=== PATIENT | female | born 1930 | race African-American/Black ===

== ENCOUNTER 2017-12-11 10:29 | Inpatient (IN) | payer MEDICARE ==
[~2017-12-11] VITALS: Ht 172.7 cm; Wt 82.1 kg
[2017-12-11 11:55] LABS: BASOPHILS % 0.6 % (0.0-2.0); EOSINOPHILS % 1.1 % (0.0-5.0); HEMATOCRIT. 33.6 % (36.0-48.0); HEMOGLOBIN. 11.2 g/dL (12.0-16.0); LYMPHOCYTES % 14.4 % (20.0-50.0); MEAN CORPUSCULAR HEMOGLOBIN 30.2 pg (28.0-32.0); MEAN CORPUSCULAR VOLUME 90.7 fL (81.0-99.0); MEAN PLATELET VOLUME 8.8 fl (7.4-10.4); NEUTROPHILS % 74.9 % (40.0-76.0); PLATELET 278 x1000/uL (130-400); RED CELL DISTRIBUTION WIDTH 15.3 % (11.6-14.6)
[2017-12-11 11:57] LABS: CHLORIDE 107 mEq/L (98-107)
[2017-12-11 12:04] LABS: BETA HYDROXYBUTYRATE 0.4 mMol/L (0.0-0.3); D-DIMER 2.32 mg/L FEU (<0.50)
[2017-12-11] MEDS ORDERED: SODIUM CHLORIDE 0.9% 1,000 ML IV ONE (13:15)
[2017-12-11] MEDS ORDERED: ASPIRIN 325MG EC TABLET PO ONE (14:00)
[2017-12-11] MEDS ORDERED: IOHEXOL-350 100 ML BOTTLE ONE (14:18)
[2017-12-11 15:46] LABS: CLARITY URINE CLEAR (CLEAR); COLOR URINE YELLOW (YELLOW); KETONES URINE NEGATIVE (NEGATIVE); LEUKOCYTE ESTERASE URINE 2+ (NEGATIVE); NITRITE URINE NEGATIVE (NEGATIVE); OCCULT BLOOD URINE NEGATIVE (NEGATIVE); PROTEIN URINE TRACE (NEGATIVE); SPECIFIC GRAVITY URINE 1.015 (1.005-1.030); UROBILINOGEN URINE 0.2 E.U./dL (0.2-1.0)
[2017-12-11 16:00] VITALS: BP 117/64
[2017-12-11] MEDS ORDERED: DEXTROSE 50% WATER 50ML SYRINGE IV PRN (16:15)
[2017-12-11] MEDS ORDERED: CLOP75TA16 MT (16:27)
[2017-12-11] MEDS ORDERED: CARB200T MT (16:27)
[2017-12-11] MEDS ORDERED: HYDR100T31 MT (16:27)
[2017-12-11] MEDS ORDERED: AMLO1CAP2 MT (16:27)
[2017-12-11] MEDS ORDERED: LIP40 MT (16:27)
[2017-12-11] MEDS: BLOOD SUGAR DIAGNOSTIC STRIP TEST SCH ×2 (17:10→21:17)
[2017-12-11 18:27] LABS: VITAMIN B12 SERUM 1344 pg/mL (211-911)
[2017-12-11] MEDS: INSULIN LISPRO 100 UNITS/ML SUBCUT SCH ×2 (18:29→22:41)
[2017-12-11 20:00] VITALS: BP 146/56
[2017-12-11] MEDS ORDERED: HYDRALAZINE HCL 100MG TABLET PO SCH (21:00)
[2017-12-11] MEDS: CARBAMAZEPINE 200MG TABLET PO SCH (22:34)
[2017-12-11] MEDS: HYDRALAZINE HCL 50MG TABLET PO SCH (22:40)
[2017-12-12] VITALS: BP 119/61
[2017-12-12 04:00] VITALS: BP 126/56
[2017-12-12] MEDS: BLOOD SUGAR DIAGNOSTIC STRIP TEST SCH ×3 (05:54→16:53)
[2017-12-12] MEDS: INSULIN LISPRO 100 UNITS/ML SUBCUT SCH ×3 (05:54→16:54)
[2017-12-12 07:30] VITALS: BP 123/55
[2017-12-12 07:45] LABS: CHLORIDE 108 mEq/L (98-107)
[2017-12-12 08:01] LABS: CARBAMAZEPINE 5.5 ug/mL (4-12)
[2017-12-12] MEDS ORDERED: MEDICATION NOT ON FORMULARY EA (Clopidogrel Bisulfate (Plavix) 1 TAB) MT SCH (09:00)
[2017-12-12] MEDS ORDERED: CLOPIDOGREL 75MG TABLET PO SCH (09:00)
[2017-12-12] MEDS ORDERED: HYDRALAZINE HCL MT SCH (09:00)
[2017-12-12] MEDS ORDERED: ATORVASTATIN CALCIUM 40MG TABLET PO SCH (09:00)
[2017-12-12] MEDS ORDERED: LOSARTAN POTASSIUM 100 MG TABLET PO SCH (09:00)
[2017-12-12] MEDS: HYDRALAZINE HCL 50MG TABLET PO SCH (09:32)
[2017-12-12] MEDS: CARBAMAZEPINE 200MG TABLET PO SCH ×2 (09:32→16:53)
[2017-12-12] MEDS ORDERED: LEVOFLOXACIN 500MG TABLET PO SCH (11:00)
[2017-12-12 11:58] VITALS: BP 126/56
[2017-12-12 12:00] VITALS: BP 126/56
[2017-12-12 16:00] VITALS: BP 125/55
== END 2017-12-12 18:50 | disposition short-term general hospital (02) | DRG 281 ==
LOC: ER 10:29 → 8WST 14:12 → EDBEDREQ 14:17 → ENRESERV 14:28
PROVIDERS: ADMIT Internal Medicine Critical Care Medicine; ATTEND Internal Medicine Critical Care Medicine
DX: I21.4 Non-ST elevation (NSTEMI) myocardial infarction (principal); N39.0 Urinary tract infection, site not specified; E11.51 Type 2 diabetes mellitus with diabetic peripheral angiopathy without gangrene; E11.65 Type 2 diabetes mellitus with hyperglycemia; E78.5 Hyperlipidemia, unspecified; I11.0 Hypertensive heart disease with heart failure; G40.909 Epilepsy, unspecified, not intractable, without status epilepticus; I50.9 Heart failure, unspecified; I70.209 Unspecified atherosclerosis of native arteries of extremities, unspecified extremity; R79.1 Abnormal coagulation profile; D64.9 Anemia, unspecified; Z96.1 Presence of intraocular lens; Z86.73 Personal history of transient ischemic attack (TIA), and cerebral infarction without residual deficits; Z79.4 Long term (current) use of insulin; Z79.899 Other long term (current) drug therapy; Z95.828 Presence of other vascular implants and grafts; Z98.41 Cataract extraction status, right eye; Z98.42 Cataract extraction status, left eye; Z89.411 Acquired absence of right great toe
CPT/HCPCS: 36415; 70450; 71045; 71275; 80048; 80053; 80156; 81003; 82010; 82607; 82962; 83036; 83540; 83550; 83880; 84484; 85025; 85379; 85610; 85730; 87086; 93005; 93306; 93970; 96360; 97162; 99285; J1815; J7030; Q9967; A4315

== ENCOUNTER 2018-06-18 14:43 | Inpatient (IN) | payer MEDICARE ==
[~2018-06-18] VITALS: Ht 165.1 cm; Wt 81.6 kg
[~2018-06-18 14:43] MED LIST: AMLO1CAP2 MT; CARB200T MT; CLOP75TA16 MT; HYDR100T31 MT; LIP40 MT
[2018-06-18 15:18] LABS: BG BASE EXCESS -4.6 mmol/L (-2.0-2.0); BG CARBOXYHEMOGLOBIN 0.3 % (0.5-1.5); BG DEOXYHEMOGLOBIN 4.3 % (0.0-5.0); BG FRACTION INSPIRED OXYGEN 21; BG HCO3 ACT 19.8 mmol/L (22.0-26.0); BG METHEMOGLOBIN 0.1 % (0.0-1.5); BG OXYGEN SATURATION 95.7 % (92.0-98.5); BG OXYHEMOGLOBIN 95.3 % (94.0-97.0); BG PH 7.383 (7.350-7.450); BG PO2 85.5 mmHg (75.0-100.0); BG SAMPLE SITE RIGHT BRACHIAL; BG TOTAL HEMOGLOBIN 9.6 g/dL (12.0-18.0); BG VENT MODE ROOM AIR
[2018-06-18] MEDS ORDERED: SODIUM CHLORIDE 0.9% 1,000 ML IV ONE (15:23)
[2018-06-18 15:29] LABS: HEMATOCRIT. 27.7 % (36.0-48.0); HEMOGLOBIN. 8.8 g/dL (12.0-16.0); MEAN CORPUSCULAR HEMOGLOBIN 29.3 pg (28.0-32.0); MEAN CORPUSCULAR VOLUME 92.1 fL (81.0-99.0); MEAN PLATELET VOLUME 8.3 fl (7.4-10.4); PLATELET 271 x1000/uL (130-400); RED BLOOD CELL COUNT 3.01 mill/uL (4.2-5.4); RED CELL DISTRIBUTION WIDTH 17.6 % (11.6-14.6)
[2018-06-18 15:33] LABS: CHLORIDE 106 mEq/L (98-107)
[2018-06-18 15:43] LABS: BETA HYDROXYBUTYRATE 0.2 mMol/L (0.0-0.3)
[2018-06-18 15:45] LABS: PLATELET ESTIMATE NORMAL
[2018-06-18 15:48] LABS: PARTIAL THROMBOPLASTIN TIME 27.7 sec (23.4-31.0); PROTHROMBIN TIME 10.3 sec (9.1-11.1)
[2018-06-18] MEDS ORDERED: FUROSEMIDE 20MG/2ML VIAL IVP ONE (16:15)
[2018-06-18] MEDS ORDERED: INSULIN REGULAR (HUMULIN R) 300UNITS/3ML IV ONE (16:15)
[2018-06-18] MEDS ORDERED: LEVOFLOXACIN 500MG PREMIX 100 ML IV ONE (17:00)
[2018-06-18] MEDS ORDERED: DEXTROSE 50% WATER 50ML SYRINGE IV PRN (19:45)
[2018-06-18] MEDS: INSULIN LISPRO 100 UNITS/ML SUBCUT SCH (21:19)
[2018-06-18] MEDS ORDERED: HYDRALAZINE HCL 50MG TABLET PO NR (21:30)
[2018-06-18] MEDS ORDERED: INSULIN GLARGINE UD 100 UNITS/ML SYR SUBCUT SCH ×2 (22:00)
[2018-06-18 22:09] LABS: CLARITY URINE CLOUDY (CLEAR); COLOR URINE YELLOW (YELLOW); KETONES URINE NEGATIVE (NEGATIVE); LEUKOCYTE ESTERASE URINE 2+ (NEGATIVE); NITRITE URINE NEGATIVE (NEGATIVE); OCCULT BLOOD URINE 1+ (NEGATIVE); PROTEIN URINE NEGATIVE (NEGATIVE); SPECIFIC GRAVITY URINE 1.016 (1.005-1.030); UROBILINOGEN URINE 0.2 E.U./dL (0.2-1.0)
[2018-06-19 06:22] LABS: HEMATOCRIT. 27.9 % (36.0-48.0); MEAN CORPUSCULAR HEMOGLOBIN 29.1 pg (28.0-32.0); MEAN CORPUSCULAR VOLUME 90.8 fL (81.0-99.0); MEAN PLATELET VOLUME 8.4 fl (7.4-10.4); PLATELET 267 x1000/uL (130-400); RED BLOOD CELL COUNT 3.08 mill/uL (4.2-5.4); RED CELL DISTRIBUTION WIDTH 17.3 % (11.6-14.6)
[2018-06-19 06:30] LABS: CHLORIDE 107 mEq/L (98-107)
[2018-06-19 06:37] LABS: LDL CHOLESTEROL 37 mg/dL (5-100)
[2018-06-19 06:39] LABS: HDL CHOLESTEROL 77 mg/dL (40-59)
[2018-06-19 06:42] LABS: PLATELET ESTIMATE NORMAL
[2018-06-19 08:55] VITALS: BP 118/50
[2018-06-19] MEDS: BLOOD SUGAR DIAGNOSTIC STRIP TEST SCH ×4 (09:34→20:57)
[2018-06-19] MEDS ORDERED: AMLODIPINE 5MG TABLET PO SCH (10:00)
[2018-06-19] MEDS ORDERED: HYDRALAZINE HCL 50MG TABLET PO SCH (10:00)
[2018-06-19] MEDS ORDERED: INSULIN GLARGINE UD 100 UNITS/ML SYR SUBCUT SCH (11:00)
[2018-06-19] MEDS ORDERED: ASPI-1158 MT (11:25)
[2018-06-19 12:00] VITALS: BP 118/50
[2018-06-19] MEDS: INSULIN LISPRO 100 UNITS/ML SUBCUT SCH ×4 (12:40→21:22)
[2018-06-19] MEDS: CARBAMAZEPINE 100MG TABLET CHEW PO SCH ×2 (13:35→19:00)
[2018-06-19] MEDS: BENAZEPRIL 10MG TABLET PO SCH (13:36)
[2018-06-19] MEDS: CLOPIDOGREL 75MG TABLET PO SCH (13:36)
[2018-06-19] MEDS ORDERED: IPRATROPIUM/ALBUTEROL 0.5-3(2.5)MG/3ML NEB HHN PRN (14:00)
[2018-06-19] MEDS ORDERED: FUROSEMIDE 40MG TABLET PO NR (15:49)
[2018-06-19 16:00] VITALS: BP 123/54
[2018-06-19] MEDS ORDERED: LEVOFLOXACIN 500MG PREMIX 100 ML IV SCH (18:00)
[2018-06-19 20:00] VITALS: BP 110/56
[2018-06-19] MEDS: HYDRALAZINE HCL 25MG TABLET PO SCH (20:56)
[2018-06-19] MEDS: INSULIN GLARGINE UD 100 UNITS/ML SYR SUBCUT SCH (21:23)
[2018-06-20] VITALS: BP 112/66
[2018-06-20 04:00] VITALS: BP 119/52
[2018-06-20 06:43] LABS: HEMATOCRIT. 25.6 % (36.0-48.0); HEMOGLOBIN. 8.3 g/dL (12.0-16.0); MEAN CORPUSCULAR HEMOGLOBIN 29.2 pg (28.0-32.0); MEAN CORPUSCULAR VOLUME 90.2 fL (81.0-99.0); MEAN PLATELET VOLUME 8.6 fl (7.4-10.4); PLATELET 258 x1000/uL (130-400); RED BLOOD CELL COUNT 2.83 mill/uL (4.2-5.4); RED CELL DISTRIBUTION WIDTH 17.9 % (11.6-14.6)
[2018-06-20] MEDS: INSULIN LISPRO 100 UNITS/ML SUBCUT SCH ×2 (07:40→12:40)
[2018-06-20 08:00] VITALS: BP 107/56
[2018-06-20] MEDS: BLOOD SUGAR DIAGNOSTIC STRIP TEST SCH ×2 (08:09→12:42)
[2018-06-20] MEDS: BENAZEPRIL 10MG TABLET PO SCH (08:23)
[2018-06-20] MEDS: HYDRALAZINE HCL 25MG TABLET PO SCH (08:23)
[2018-06-20] MEDS: CARBAMAZEPINE 100MG TABLET CHEW PO SCH (08:31)
[2018-06-20] MEDS: CLOPIDOGREL 75MG TABLET PO SCH (08:31)
[2018-06-20] MEDS: INSULIN GLARGINE UD 100 UNITS/ML SYR SUBCUT SCH (10:15)
[2018-06-20 12:00] VITALS: BP 110/51
[2018-06-20 13:43] VITALS: BP 110/51
[2018-06-20 14:58] LABS: PLATELET ESTIMATE NORMAL
[2018-06-20 16:05] VITALS: BP 130/54
== END 2018-06-20 16:08 | disposition short-term general hospital (02) | DRG 637 ==
LOC: ER 14:43 → 8WST 16:53 → ENRESERV 06-19 07:08
PROVIDERS: ADMIT Internal Medicine Critical Care Medicine; ATTEND Internal Medicine Critical Care Medicine
DX: E11.65 Type 2 diabetes mellitus with hyperglycemia (principal); G93.41 Metabolic encephalopathy; E44.0 Moderate protein-calorie malnutrition; G40.909 Epilepsy, unspecified, not intractable, without status epilepticus; N18.3 Chronic kidney disease, stage 3 (moderate); R22.1 Localized swelling, mass and lump, neck; I70.201 Unspecified atherosclerosis of native arteries of extremities, right leg; E11.22 Type 2 diabetes mellitus with diabetic chronic kidney disease; E11.51 Type 2 diabetes mellitus with diabetic peripheral angiopathy without gangrene; Z96.1 Presence of intraocular lens; I12.9 Hypertensive chronic kidney disease with stage 1 through stage 4 chronic kidney disease, or unspecified chronic kidney disease; Z74.01 Bed confinement status; Z98.42 Cataract extraction status, left eye; Z86.73 Personal history of transient ischemic attack (TIA), and cerebral infarction without residual deficits; Z98.41 Cataract extraction status, right eye; Z79.02 Long term (current) use of antithrombotics/antiplatelets; Z79.899 Other long term (current) drug therapy; Z68.30 Body mass index [BMI] 30.0-30.9, adult; I69.398 Other sequelae of cerebral infarction
CPT/HCPCS: 36415; 36600; 71045; 80048; 80061; 82010; 82375; 82805; 82962; 83036; 83735; 83880; 83930; 84484; 93005; 93970; 96361; 96365; 96366; 96375; 99291; J1815; J1940; J1956; J7030; J7050; J7620